=== PATIENT | male | born 1985 | race American Indian/Alaskan Native ===

== ENCOUNTER 2021-09-03 02:39 | Emergency (ER) | payer SELFPAY ==
[2021-09-03 02:49] VITALS: BP 151/92
--- NOTE | 2021-09-03 03:59 | Cat Scan Report ---
CT head/brain wo con INDICATION: Head injury while at work, now with a headache. No L.O.C.. TECHNIQUE: All CT scans at this location are performed using CT dose reduction for ALARA by means of automated e xposure control. COMPARISON: None available. FINDINGS: There is no evidence of hemorrhage, hydrocephalus, brain edema, or mass effect/mass lesion. There is overall normal brain formation and brain volume for the patient's age. Ventricular and cisternal/sulc al size is normal for age. The included paranasal sinuses and mastoid air cells are clear. The orbits appear unremarkable. IMPRESSION: 1. No acute intracranial abnormality. Signer Name: Evelio Givens MD Signed: 09/03/2021 3:54 AM Workstation Name: [id number]
[2021-09-03] MEDS: IBUPROFEN 600 MG TAB PO ONE (04:07)
[2021-09-03] MEDS: BUTALB/ACETAMINOPHEN/CAFFEINE TAB PO ONE (04:07)
--- NOTE | 2021-09-03 04:19 | Emergency Department Report ---
ED Head Trauma HPI - General Chief complaint: Head Injury Stated complaint: HEAD INJURY/WC Source: patient Mode of arrival: Ambulatory Limitations: No Limitations - History of Present Illness Initial comments: Patient is a 35-year-old -[place] male with no past medical history presents to the ED with complaint of acute onset persistent severe headache with localized parietal scalp pain after a heavy box containing heavy candles at work slipped and fell on his head about 4 hours ago at work. Patient states that he felt dazed, developed nausea and vomiting x1 and blurry vision momentarily. Patient denies loss of consciousness, dizziness, syncope, chest pain, neck pain, vision loss, numbness and tingling or weakness of upper and lower extremities bilaterally, chest pain or shortness of breath or dental injuries and seizures. MD Complaint: head injury (Parietal scalp pain), other (Headache) -: Sudden, hour(s) (4) Arrival Conditions: Negative: C-spine immobilization present, spinal board immobilization present Mechanism of Injury: work related injury (Heavy box containing candles fell on his head) Location: parietal Loss of Consciousness: no Previous Trauma to this Area: No Place: work Radiation: none Severity: severe Severity scale (0 -10): 7 Quality: sharp Consistency: constant Provoking factors: none known Other Injuries: none Associated Symptoms: denies other symptoms, nausea, vomiting. denies: confusion, repetitive questioning, vision changes, vertigo, syncope, numbness, weakness, tingling, neck pain, other - Related Data Previous Rx's Medication Instructions Recorded Last Taken Type Butalb/Acetamin/Caff 50-325-40 1 - 2 tab PO Q6HR PRN #10 tab 09/03/21 Unknown Rx [Fioricet 50-325-40] Ibuprofen [Motrin] 800 mg PO Q8HR PRN #30 tablet 09/03/21 Unknown Rx Ondansetron [Zofran Odt] 4 mg PO Q8HR PRN #15 tab.rapdis 09/03/21 Unknown Rx Allergies/Adverse reactions: Allergies Allergy/AdvReac Type Severity Reaction Status Date / Time No Known Allergies Allergy Unverified 09/03/21 03:37 ED Review of Systems ROS: Stated complaint: HEAD INJURY/WC Other details as noted in HPI Constitutional: denies: chills, fever Eyes: denies: eye pain, eye discharge, vision change ENT: other (Head injury). denies: ear pain, throat pain Respiratory: denies: cough, shortness of breath, wheezing Cardiovascular: denies: chest pain, palpitations Endocrine: no symptoms reported Gastrointestinal: nausea. denies: abdominal pain, vomiting, diarrhea Genitourinary: denies: urgency, dysuria Musculoskeletal: denies: back pain, joint swelling, arthralgia Skin: denies: rash, lesions Neurological: headache. denies: weakness, paresthesias Psychiatric: denies: anxiety, depression Hematological/Lymphatic: denies: easy bleeding, easy bruising ED Past Medical Hx - Medications Home Medications: Home Medications Medication Instructions Recorded Confirmed Last Taken Type Butalb/Acetamin/Caff 50-325-40 1 - 2 tab PO Q6HR PRN #10 tab 09/03/21 Unknown Rx [Fioricet 50-325-40] Ibuprofen [Motrin] 800 mg PO Q8HR PRN #30 tablet 09/03/21 Unknown Rx Ondansetron [Zofran Odt] 4 mg PO Q8HR PRN #15 tab.rapdis 09/03/21 Unknown Rx ED Physical Exam - General Limitations: No Limitations General appearance: alert, in no apparent distress - Head Head exam: Present: other (Palpable parietal scalp tenderness) - Eye Eye exam: Present: normal appearance, PERRL, EOMI Pupils: Present: normal accommodation - ENT ENT exam: Present: normal exam, normal orophraynx, mucous membranes moist, TM's normal bilaterally, normal external ear exam - Neck Neck exam: Present: normal inspection, full ROM. Absent: tenderness - Respiratory Respiratory exam: Present: normal lung sounds bilaterally. Absent: respiratory distress, wheezes, rales, chest wall tenderness, accessory muscle use, decreased breath sounds - Cardiovascular Cardiovascular Exam: Present: regular rate, normal rhythm, normal heart sounds. Absent: systolic murmur, diastolic murmur, rubs, gallop - GI/Abdominal GI/Abdominal exam: Present: soft, normal bowel sounds. Absent: tenderness, guarding, hyperactive bowel sounds, hypoactive bowel sounds - Extremities Exam Extremities exam: Present: normal inspection, full ROM, normal capillary refill. Absent: tenderness - Back Exam Back exam: Present: normal inspection, full ROM. Absent: tenderness, CVA tenderness (R), CVA tenderness (L), muscle spasm, paraspinal tenderness, vertebral tenderness - Neurological Exam Neurological exam: Present: alert, oriented X3, CN II-XII intact, normal gait, reflexes normal - Psychiatric Psychiatric exam: Present: normal affect, normal mood - Skin Skin exam: Present: warm, dry, intact, normal color. Absent: rash ED Course Vital Signs 09/03/21 02:46 Temperature 98.9 F Pulse Rate 78 Respiratory 16 Rate Blood Pressure 151/92 O2 Sat by Pulse 98 Oximetry - Radiology Data Radiology results: report reviewed, image reviewed [facility] [address] [place] [address] Cat Scan Report Signed Patient: YOJANA LEVINE MR#: [id number] : 1985 Acct:[id number] Age/Sex: 35 / M ADM Date: 09/03/21 Loc: ED Attending Dr: Ordering Physician: KEENAN MALONE Date of Service: 09/03/21 Procedure(s): CT head/brain wo con Accession Number(s): [id number] cc: KEENAN MALONE CT head/brain wo con INDICATION: Head injury while at work, now with a headache. No L.O.C.. TECHNIQUE: All CT scans at this location are performed using CT dose reduction for ALARA by means of automated exposure control. COMPARISON: None available. FINDINGS: There is no evidence of hemorrhage, hydrocephalus, brain edema, or mass effect/mass lesion. There is overall normal brain formation and brain volume for the patient's age. Ventricular and cisternal/sulcal size is normal for age. The included paranasal sinuses and mastoid air cells are clear. The orbits appear unremarkable. IMPRESSION: 1. No acute intracranial abnormality. Signer Name: Evelio Givens MD Signed: 09/03/2021 3:54 AM Workstation Name: [id number] Transcribed By: [email or web address] Dictated By: Evelio Givens MD Electronically Authenticated By: Evelio Givens MD Signed Date/Time: 09/03/21353 DD/ 3 TD/TT: Print - Medical Decision Making This is a 35-year-old -[place] male with no past medical history presents to the ED with complaint of acute onset persistent severe headache with localized parietal scalp pain after a heavy box containing heavy candles at work slipped and fell on his head about 4 hours ago at work. Patient states that he felt dazed, developed nausea and vomiting x1 and blurry vision momentarily. Patient denies loss of consciousness, dizziness, syncope, chest pain, neck pain, vision loss, numbness and tingling or weakness of upper and lower extremities bilaterally, chest pain or shortness of breath or dental injuries and seizures. In the ED, patient is alert and oriented x3 and is not in any distress. Patient was treated for pain in the ED. Head CT scan without contrast showed no acute intracranial abnormalities or hemorrhage. On reevaluation, patient's is hemodynamically stable, and headache has improved significantly. Patient will discharge home on medications for pain and advised to follow-up with his primary care physician in 7 to 10 days for reevaluation or return to the ED immediately if symptoms get worse. - Differential Diagnosis Head injury; scalp contusion; posttraumatic headache - Core Measures AMI Core Measures Followed: No Measure Exclusions: not indicated - NEXUS Criteria Focal neurological deficit present: No Midline spinal tenderness present: No Altered level of consciousness: No Intoxication present: No Distracting injury present: No NEXUS results: C-Spine can be cleared clinically by these results. Imaging is not required. Critical care attestation.: If time is entered above; I have spent that time in minutes in the direct care of this critically ill patient, excluding procedure time. ED Disposition Clinical Impression: Contusion of scalp Qualifiers: Encounter type: initial encounter Qualified Code(s): S00.03XA - Contusion of scalp, initial encounter Post-traumatic headache, unspecified Qualifiers: Headache chronicity pattern: acute headache Intractability: not intractable Qualified Code(s): G44.319 - Acute post-traumatic headache, not intractable Head injury without skull fracture Qualifiers: Encounter type: initial encounter Qualified Code(s): S09.90XA - Unspecified injury of head, initial encounter Disposition: 01 HOME / SELF CARE / HOMELESS Is pt being admited?: No Does the pt Need Aspirin: No Condition: Stable Instructions: Tension Headache, Adult, [id number], Facial or Scalp Contusion, [id number] Additional Instructions: The head CT scan without contrast showed no acute intracranial abnormalities or hemorrhage. Therefore take medication with food, drink plenty of fluids and follow-up with your primary care physician in 7 to 10 days for reevaluation. Return to the ED immediately if symptoms get worse. Prescriptions: Butalb/Acetamin/Caff 50-325-40 [Fioricet 50-325-40] 1 - 2 tab PO Q6HR PRN #10 tab PRN Reason: Headache Ibuprofen [Motrin] 800 mg PO Q8HR PRN #30 tablet PRN Reason: Pain , Severe (7-10) Ondansetron [Zofran Odt] 4 mg PO Q8HR PRN #15 tab.rapdis PRN Reason: Nausea Referrals: [facility] [Provider Group] - 7-10 days Forms: Work/School Release Form(ED) Time of Disposition: 04:17 Print Language: ROMANIAN
== END 2021-09-03 05:26 | disposition home or self-care (01) ==
LOC: ED 02:39
DX: S00.03XA Contusion of scalp, initial encounter (principal); G44.309 Post-traumatic headache, unspecified, not intractable; Z79.899 Other long term (current) drug therapy; W22.8XXA Striking against or struck by other objects, initial encounter; Y93.89 Activity, other specified; Y92.89 Other specified places as the place of occurrence of the external cause; Y99.8 Other external cause status
CPT/HCPCS: 70450; 99283